=== PATIENT | male | born 1980 ===

== ENCOUNTER 2021-02-09 23:18 | Emergency (ER) | payer SELFPAY ==
[~2021-02-09] VITALS: Ht 170.2 cm; Wt 72.7 kg
[2021-02-10 01:30] VITALS: BP 135/82
== END 2021-02-10 06:50 | disposition home or self-care (01) ==
LOC: EMS 23:20
DX: S62.312A Displaced fracture of base of third metacarpal bone, right hand, initial encounter for closed fracture (principal); S62.314A Displaced fracture of base of fourth metacarpal bone, right hand, initial encounter for closed fracture; F10.129 Alcohol abuse with intoxication, unspecified; F17.210 Nicotine dependence, cigarettes, uncomplicated; F12.90 Cannabis use, unspecified, uncomplicated; W22.8XXA Striking against or struck by other objects, initial encounter; Y93.89 Activity, other specified; Y92.89 Other specified places as the place of occurrence of the external cause; Y99.0 Civilian activity done for income or pay
CPT/HCPCS: 99283